=== PATIENT | male | born 1970 | race Caucasian/White ===

== ENCOUNTER 2016-12-27 09:24 | Inpatient (IN) | payer OTHER ==
[~2016-12-27] VITALS: Ht 177.8 cm; Wt 128.9 kg
[~2016-12-27 09:24] MED LIST: ALPR0.254 PO; AMLO5TAB2 PO; ASPI-9 PO; CITA10TA7 PO; LISI1TAB6 PO; METO-272 PO; PANT40TA3 PO
--- OUTSIDE RECORDS SUMMARY | 2016-12-27 09:41 | XMS REPORT | Continuity of Care Document ---
Author Author [facility] Organization [facility] Address Unknown Phone Unavailable Allergies Active Description Code Type Severity Reaction Onset Reported/Identified Relationship to Patient Clinical Status Yes No Known Drug Allergies [id number] Drug Allergy Unknown N/ A 07/23/2014 Medications Problems Date Dx Coded Attending Type Code Diagnosis Diagnosed By 07/23/2014 ADIEL ROSS, SANTOS [place] 780.97 07/23/2014 ADIEL ROSS, SANTOS [place] 785.1 04/13/2015 LAZARO DO ELROY [place] Ot 726.2 04/13/2015 LAZARO DO ELROY F Ot V57.1 05/30/2015 LAZARO DO ELROY [place] Ot 726.2 SHOULDER REGION DIS NEC 05/30/2015 LAZARO , ELROY F Ot V57.1 PHYSICAL THERAPY NEC 06/17/2015 TYE KHAN CRAFT WORKER Ot V57.1 06/17/2015 TYE KHAN CRAFT WORKER Ot V58.78 07/12/2015 TYE KHAN CRAFT WORKER Ot V57.1 PHYSICAL THERAPY NEC 07/12/2015 TYE KHAN CRAFT WORKER Ot V58.78 AFTERCARE POST SURGERY MUSCULOSKELETAL S 10/13/2015 IRENE DO, RODRIGUE Ot E66.9 10/13/2015 IRENE DO, RODRIGUE Ot E78.5 10/13/2015 IRENE DO, RODRIGUE Ot I10 10/13/2015 IRENE DO, RODRIGUE Ot I20.9 10/13/2015 IRENE DO, RODRIGUE Ot K21.9 10/13/2015 IRENE DO, RODRIGUE Ot R73.9 10/13/2015 IRENE DO, RODRIGUE Ot Z68.39 10/13/2015 IRENE DO, RODRIGUE Ot E66.9 OBESITY, UNSPECIFIED 10/13/2015 IRENE DO, RODRIGUE Ot E78.5 HYPERLIPIDEMIA, UNSPECIFIED 10/13/2015 IRENE DO, RODRIGUE Ot I10 ESSENTIAL (PRIMARY) HYPERTENSION 10/13/2015 IRENE DO, RODRIGUE Ot I20.9 ANGINA PECTORIS, UNSPECIFIED 10/13/2015 IRENE DO, RODRIGUE Ot K21.9 GASTRO-ESOPHAGEAL REFLUX DISEASE WITHOUT 10/13/2015 IRENE DO, RODRIGUE Ot R73.9 HYPERGLYCEMIA, UNSPECIFIED 10/13/2015 IRENE DO, RODRIGUE Ot Z68.39 BODY MASS INDEX (BMI) 39.0-39.9, ADULT 10/13/2015 IRENE DO, RODRIGUE Ot E66.9 10/13/2015 IRENE DO, RODRIGUE Ot E78.5 10/13/2015 IRENE DO, RODRIGUE Ot I10 10/13/2015 IRENE DO, RODRIGUE Ot I20.9 10/13/2015 IRENE DO, RODRIGUE Ot K21.9 10/13/2015 IRENE DO, RODRIGUE Ot R73.9 10/13/2015 IRENE DO, RODRIGUE Ot Z68.39 Procedures Results Encounters ACCT No. Visit Date/Time Discharge Status Pt. Type Provider Facility Loc./Unit Complaint [id number] 10/11/2015 10:28:00 2014 10:00:00 DIS Inpatient TETO MEANS RODRIGUE [facility] ICU [id number] 07/12/2015 13:30:00 2014 16:47:00 DIS Outpatient TYE KHAN APRN [facility] REHAB [id number] 04/20/2015 14:48:00 2014 11:27:00 DIS Outpatient ELROY WILLIS DO [facility] REHAB [id number] 07/23/2014 04:48:00 2013 06:52:00 DIS Emergency ADIEL ROSS, SANTOS [facility] ER
[2016-12-27] MEDS ORDERED: CATHETER FLUSH 10 ML SYR IV PRN (09:45)
[2016-12-27] MEDS ORDERED: NS 100 ML (IVPB) BAG IV ONE (09:45)
[2016-12-27] MEDS ORDERED: IOHEXOL 350 MG/ML 150 ML (OMNIPAQUE 350) VIAL IV ONE (09:45)
--- NOTE | 2016-12-27 10:04 | History & Physical-Hospitalist ---
HPI History of Present Illness: HPI/Chief Complaint CC: Severe cough and wheezing failed outpatient therapy HPI: This is a 46-year-old white male clinic patient of mine for the past several years with a past medical history of hypertension and hyperglycemia with hyperlipidemia that presents to the hospital as a direct admission due to failure on Levaquin, oral steroids, and Advair for upper respiratory illness walking pneumonia empirically treated by me at my clinic on Saturday. He reports that the cough started 1 week prior fever accompanying the cough with productive cough of phlegm and overall declined source I'm on Saturday found to have wheezing and shortness of breath so I placed him on antibiotics of Levaquin and steroid taper along with Advair and close follow-up. He called the office today and felt worse so I directly admitted him found to have lactic acid of 2.1 elevation cities placed on empiric triple antibiotic IV antibiotics and steroids. Source: patient Date Seen 12/27/16 Attending Physician Hillary Wilson DO PCP Hillary Wilson DO Referring Physician Date of Admission Dec 27, 2016 at 09:36 Home Medications & Allergies Home Medications Reviewed patient Home Medication Reconciliation Form Allergies Coded Allergies: No Known Drug Allergies (Unverified , 07/23/14) Past Wockdud-Jhamps-Jlgqkc Hx Patient Social History Marrital Status: Employed/Student: employed Smoking Status: Never a Smoker Immunizations Up To Date Tetanus Booster (TDap): Unknown Surgeries HX Surgeries: Yes (MAY 2015 L SHOULDER SURG, R KNEE SURG 1992) Surgeries: Orthopedic Respiratory Hx Respiratory Disorders: No Cardiovascular Hx Cardiovascular Disorders: Yes Cardiac Disorders: High Cholesterol, Hypertension Neurological Hx Neurological Disorders: No Reproductive System Hx Reproductive Disorders: No Genitourinary Hx Genitourinary Disorders: No (KIDNEY STONE WHEN 19 YEARS OLD) Gastrointestinal Hx Gastrointestinal Disorders: No (OCCASIONALLY GETS HEARTBURN) Musculoskeletal Hx Musculoskeletal Disorders: No (HAD ARTHRITIS TO L SHOULDER) Musculoskeletal Disorders: Arthritis Endocrine Hx Endocrine Disorders: Yes Endocrine Disorders: Diabetes, Non-Insulin dep HEENT HX ENT Disorders: No Cancer Hx Cancer: No Psychosocial Hx Psychiatric Problems: No Integumentary HX Skin/Integumentary Disorder: No Blood Transfusions Hx Blood Disorders: No Family Medical History Significant Family History: No Pertinent Family Hx Family Hx: CABG 19 FATHER Cardiovascular disease 19 FATHER Diabetes mellitus GRANDMOTHER GRANDFATHER Hypertension 19 FATHER Review of Systems Constitutional: see HPI dizziness fever malaise weakness EENTM: no symptoms reported Respiratory: cough short of breath wheezing Cardiovascular: no symptoms reported Gastrointestinal: no symptoms reported Genitourinary: no symptoms reported Musculoskeletal: no symptoms reported Skin: no symptoms reported Psychiatric/Neurological: No Symptoms Reported Physical Exam Physical Exam Vital Signs Vital Sign - Last 12Hours 12/27/16 10:30 Pulse Ox 96 Capillary Refill : General Appearance: No Apparent Distress WD/WN Obese Other (acutely ill and constantly coughing and wheezing) Eyes: Bilateral Eye Normal Inspection, Bilateral Eye PERRL HEENT: PERRL/EOMI Normal ENT Inspection Pharynx Normal Neck: Full Range of Motion Normal Inspection Non Tender Supple Carotid Bruit Respiratory: Chest Non Tender No Accessory Muscle Use No Respiratory Distress Crackles Decreased Breath Sounds Wheezing Cardiovascular: Regular Rate, Rhythm No Edema No Gallop No JVD No Murmur Normal Peripheral Pulses Gastrointestinal: Normal Bowel Sounds No Organomegaly No Pulsatile Mass Non Tender Soft Back: Normal Inspection No CVA Tenderness No Vertebral Tenderness Extremity: Normal Capillary Refill Normal Inspection Normal Range of Motion Non Tender No Calf Tenderness No Pedal Edema Neurologic/Psychiatric: Alert Oriented x3 No Motor/Sensory Deficits Normal Mood/Affect Skin: Normal Color Warm/Dry Lymphatic: No Adenopathy Results Results/Procedures Lab Laboratory Tests 12/27/16 09:37 12/27/16 09:52 Assessment/Plan Admission Diagnosis Assessment: Pneumonia failed Levaquin and steroids and Advair New onset wheezing without history of lung disease and a nonsmoker lifetime Hypertension Hyperlipidemia Obesity Elevated lactic acid placed on IV fluids Hypoxia Assessment and Plan Plan: Check chest x-ray IV fluids Empiric antibiotics IV steroids Pulmicort DuoNeb Check ABG Supportive care Accu-Cheks with sliding scale due to hyperglycemia in addition to steroids HILLARY WILSON DO Dec 27, 2016 10:04
[2016-12-27 10:08] LABS: BASOPHILS % (AUTO) 1 % (0-10); EOSINOPHILS % (AUTO) 1 % (0-10); LYMPHOCYTES # (AUTO) 1.7 X 10^3 (1.0-4.0); LYMPHOCYTES % (AUTO) 20 % (12-44); MEAN CORPUSCULAR HEMOGLOBIN 30 PG (25-34); MEAN CORPUSCULAR HGB CONC 35 G/DL (32-36); MEAN CORPUSCULAR VOLUME 87 FL (80-99); MEAN PLATELET VOLUME 10.1 FL (7.4-10.4); MONOCYTES # (AUTO) 0.7 X 10^3 (0.0-1.0); MONOCYTES % (AUTO) 8 % (0-12); NEUTROPHILS # (AUTO) 6.1 X 10^3 (1.8-7.8); NEUTROPHILS % (AUTO) 71 % (42-75); PLATELET COUNT 230 10^3/uL (130-400); RED BLOOD COUNT 4.75 10^6/uL (4.35-5.85); RED CELL DISTRIBUTION WIDTH 13.9 % (10.0-14.5); WHITE BLOOD COUNT 8.6 10^3/uL (4.3-11.0)
[2016-12-27] MEDS ORDERED: ALPR0.25 PO (10:16)
[2016-12-27] MEDS ORDERED: PANT40TA2 PO (10:16)
[2016-12-27] MEDS ORDERED: TRIA1CAP4 PO (10:16)
[2016-12-27] MEDS ORDERED: LEVO750T9 PO (10:16)
[2016-12-27] MEDS ORDERED: CITA10TA7 PO (10:16)
[2016-12-27] MEDS ORDERED: AMLO10TA2 PO (10:16)
[2016-12-27] MEDS ORDERED: FLUT1DIS28 IH (10:16)
[2016-12-27] MEDS ORDERED: PRD10T PO (10:16)
[2016-12-27] MEDS ORDERED: METO-272 PO (10:16)
[2016-12-27] MEDS ORDERED: ALBU90AE IH (10:16)
--- NOTE | 2016-12-27 10:19 | Diagnostic Imaging Report ---
EXAMINATION: PA and lateral views of the chest. COMPARISON: 10/12/15. INDICATION: Shortness of breath and cough. FINDINGS: There is elevation of the right hemidiaphragm similar to 10/12/2015 exam with minimal atelectasis in the right lung base. No significant consolidation. The heart size is normal. No effusion or pneumothorax. The mediastinum and triston appear unremarkable. IMPRESSION: Elevated right hemidiaphragm with minimal right basilar atelectasis. Dictated by: Dictated on workstation # [id number]
[2016-12-27 10:26] LABS: ALANINE AMINOTRANSFERASE 50 U/L (0-55); ALBUMIN 3.9 G/DL (3.2-4.5); ANION GAP 13 MMOL/L (5-14); ASPARTATE AMINO TRANSFERASE 24 U/L (5-34); BILIRUBIN,TOTAL 0.3 MG/DL (0.1-1.0); BLOOD UREA NITROGEN 13 MG/DL (7-18); BUN/CREATININE RATIO 15; CALCIUM 8.6 MG/DL (8.5-10.1); CARBON DIOXIDE 21 MMOL/L (21-32); CHLORIDE 105 MMOL/L (98-107); CREATININE SERUM 0.87 MG/DL (0.60-1.30); GFR ESTIMATED > 60; GLUCOSE 255 MG/DL (70-105); POTASSIUM 3.8 MMOL/L (3.6-5.0); SODIUM 139 MMOL/L (135-145); TOTAL PROTEIN 6.3 G/DL (6.4-8.2)
[2016-12-27] MEDS: RT-BUDESONIDE NEBS 0.5 MG/2ML (PULMICORT) AMP INH SCH ×2 (10:29→19:15)
[2016-12-27] MEDS: RT-ALBUTEROL/IPRATROPIUM 3 ML (DUONEB) VIAL INH SCH ×4 (10:29→19:15)
[2016-12-27 10:30] VITALS: BP 146/87
[2016-12-27 10:32] LABS: ABG BASE EXCESS 2.3 MMOL/L (-2.5-2.5); ABG HCO3 28 MMOL/L (23-27); ABG OXYGEN SATURATION 68 % (94-100); ABG PCO2 45 MMHG (35-45); ABG PH 7.41 (7.37-7.43); ABG TCO2 28.9 MMOL/L (21.0-31.0)
[2016-12-27 10:32] LABS: TROPONIN I < 0.30 NG/ML (<0.30)
[2016-12-27 10:36] LABS: ABG PO2 35 MMHG (79-93); PATIENT TEMP 98.2
[2016-12-27] MEDS: NS IV 1000 ML 1,000 ML IV SCH ×2 (11:21→23:15)
[2016-12-27] MEDS: guaiFENesin/CODEINE (ROBITUSSIN AC) 10ML UDC PO PRN ×2 (11:36→23:13)
[2016-12-27] MEDS: CEFEPIME INJECTION 2,000 MG in NS (IVPB) 50 ML IV SCH ×2 (11:38→23:14)
[2016-12-27 12:00] VITALS: BP 132/83
[2016-12-27] MEDS: methylPREDNISolone 40 MG/ML (Solu-MEDROL) VIAL IV SCH ×3 (12:18→23:13)
[2016-12-27] MEDS: LEVOFLOXACIN 750 MG/150 ML IV 150 ML IV SCH (12:20)
[2016-12-27] MEDS: inSUlin ASPART (NovoLOG) 1 UNIT/0.01 ML (CHARGE PER UNIT) SC SCH ×3 (12:32→23:13)
[2016-12-27] MEDS ORDERED: FLU TRIvalent (5 YOA+) 2016-17 (AFLURIA) 0.5 ML IM ONE (15:30)
--- NOTE | 2016-12-27 15:31 | Diagnostic Imaging Report ---
PROCEDURE: CT angiography of the chest with contrast. TECHNIQUE: Multiple contiguous axial images were obtained through the chest after uneventful bolus administration of intravenous contrast. Reconstructed CTA MIP acquisitions were also performed. INDICATION: Cough and congestion. Febrile. FINDINGS: There is moderate opacification of the aorta and pulmonary arteries following IV contrast injection. No evidence of aortic aneurysm or dissection. Pulmonary arteries show no filling defect to suggest pulmonary emboli. The lungs are well aerated and clear. No mediastinal or hilar adenopathy of pathologic size. No bony abnormality. There is noted hepatomegaly with diffuse fatty infiltration of the liver. IMPRESSION: 1. Normal CT angiography of the chest. 2. Hepatic steatosis with hepatomegaly. Dictated by: Dictated on workstation # [id number]
[2016-12-27 15:45] VITALS: BP 136/78
[2016-12-27] MEDS ORDERED: inSUlin ASPART (NovoLOG) 1 UNIT/0.01 ML (CHARGE PER UNIT) SC SCH (16:00)
[2016-12-27] MEDS ORDERED: ALPRAZolam 0.25 MG (XANAX) TAB PO PRN (17:45)
[2016-12-27 20:00] VITALS: BP 131/72
[2016-12-28] VITALS: BP 122/72
[2016-12-28 04:00] VITALS: BP 138/81
[2016-12-28 05:14] LABS: BASOPHILS % (AUTO) 0 % (0-10); EOSINOPHILS % (AUTO) 0 % (0-10); LYMPHOCYTES # (AUTO) 1.3 X 10^3 (1.0-4.0); LYMPHOCYTES % (AUTO) 10 % (12-44); MEAN CORPUSCULAR HEMOGLOBIN 30 PG (25-34); MEAN CORPUSCULAR HGB CONC 34 G/DL (32-36); MEAN CORPUSCULAR VOLUME 86 FL (80-99); MEAN PLATELET VOLUME 10.3 FL (7.4-10.4); MONOCYTES # (AUTO) 0.3 X 10^3 (0.0-1.0); MONOCYTES % (AUTO) 3 % (0-12); NEUTROPHILS # (AUTO) 11.7 X 10^3 (1.8-7.8); NEUTROPHILS % (AUTO) 88 % (42-75); PLATELET COUNT 276 10^3/uL (130-400); RED BLOOD COUNT 4.89 10^6/uL (4.35-5.85); RED CELL DISTRIBUTION WIDTH 13.8 % (10.0-14.5); WHITE BLOOD COUNT 13.3 10^3/uL (4.3-11.0)
[2016-12-28 05:19] LABS: ALANINE AMINOTRANSFERASE 45 U/L (0-55); ALBUMIN 3.9 G/DL (3.2-4.5); ANION GAP 12 MMOL/L (5-14); ASPARTATE AMINO TRANSFERASE 18 U/L (5-34); BILIRUBIN,TOTAL 0.4 MG/DL (0.1-1.0); BLOOD UREA NITROGEN 16 MG/DL (7-18); BUN/CREATININE RATIO 16; CALCIUM 8.4 MG/DL (8.5-10.1); CARBON DIOXIDE 21 MMOL/L (21-32); CHLORIDE 102 MMOL/L (98-107); CREATININE SERUM 0.99 MG/DL (0.60-1.30); GFR ESTIMATED > 60; GLUCOSE 254 MG/DL (70-105); POTASSIUM 4.2 MMOL/L (3.6-5.0); SODIUM 135 MMOL/L (135-145); TOTAL PROTEIN 6.4 G/DL (6.4-8.2)
[2016-12-28] MEDS: methylPREDNISolone 40 MG/ML (Solu-MEDROL) VIAL IV SCH ×4 (06:37→23:58)
[2016-12-28] MEDS: inSUlin ASPART (NovoLOG) 1 UNIT/0.01 ML (CHARGE PER UNIT) SC SCH ×4 (06:38→21:33)
[2016-12-28] MEDS: PANTOPRAZOLE 40 MG (PROTONIX) TAB PO SCH (06:38)
[2016-12-28] MEDS: RT-ALBUTEROL/IPRATROPIUM 3 ML (DUONEB) VIAL INH SCH ×4 (07:25→20:00)
[2016-12-28] MEDS: RT-BUDESONIDE NEBS 0.5 MG/2ML (PULMICORT) AMP INH SCH ×2 (07:25→20:05)
[2016-12-28 07:54] VITALS: BP 122/70
[2016-12-28] MEDS: TRIAMTERENE/HCTZ 75-50 (MAXZIDE,DYAZIDE) TABLET PO SCH (08:52)
[2016-12-28] MEDS: meTOproloL SUCCINATE 50 MG (TOPROL XL) TAB PO SCH (08:53)
[2016-12-28] MEDS: amLODIPine 10 MG (NORVASC) TAB PO SCH (08:53)
[2016-12-28] MEDS: CEFEPIME INJECTION 2,000 MG in NS (IVPB) 50 ML IV SCH ×2 (08:54→21:36)
[2016-12-28] MEDS ORDERED: NON-FORMULARY MEDICATION 1 EA EA (Triamterene/Hydrochlorothiazid (Triamterene-Hctz 37.5-25 PO SCH (09:00)
[2016-12-28] MEDS ORDERED: GFCD10B PO (09:50)
[2016-12-28] MEDS ORDERED: IPRA3AMP INH (09:50)
[2016-12-28] MEDS ORDERED: PRED10TA22 PO (09:50)
[2016-12-28] MEDS ORDERED: CEFD300C3 PO (09:50)
[2016-12-28] MEDS: LEVOFLOXACIN 750 MG/150 ML IV 150 ML IV SCH (10:02)
--- NOTE | 2016-12-28 10:21 | Diagnostic Imaging Report ---
INDICATION: Pneumonia COMPARISON: 12/27/2016 FINDINGS: Frontal and lateral views of the chest demonstrate normal heart size and pulmonary vascularity. The lungs are clear. There are no signs of infiltrate, pleural effusions or pneumothoraces. The visualized osseous structures show no acute abnormalities. IMPRESSION: 1. No acute process. No signs of infiltrates, effusions or pneumothoraces. Dictated by: Dictated on workstation # [id number]
--- NOTE | 2016-12-28 11:04 | Progress Note-Hospitalist ---
Progress Note HPI/CC on Admission CC: Severe cough and wheezing failed outpatient therapy HPI: This is a 46-year-old white male clinic patient of mine for the past several years with a past medical history of hypertension and hyperglycemia with hyperlipidemia that presents to the hospital as a direct admission due to failure on Levaquin, oral steroids, and Advair for upper respiratory illness walking pneumonia empirically treated by me at my clinic on Saturday. He reports that the cough started 1 week prior fever accompanying the cough with productive cough of phlegm and overall declined source I'm on Saturday found to have wheezing and shortness of breath so I placed him on antibiotics of Levaquin and steroid taper along with Advair and close follow-up. He called the office today and felt worse so I directly admitted him found to have lactic acid of 2.1 elevation cities placed on empiric triple antibiotic IV antibiotics and steroids. Progress Notes/Assess & Plan Date Seen 12/28/16 Admission Dx/Process Assessment: Pneumonia failed Levaquin and steroids and Advair New onset wheezing without history of lung disease and a nonsmoker lifetime Hypertension Hyperlipidemia Obesity Elevated lactic acid placed on IV fluids Hypoxia Diagonsis/Assessment & Plan Patient doing well but he just doesn't feel right CT angiogram showed no evidence of PE and d-dimer was negative Chest x-ray showed slight residual from likely pneumonia that was diagnosed on Saturday placed on Levaquin and likely partially resolved White count is up from the steroids Patient is flushing likely due to steroids Echocardiogram and workup for chest pain was done fairly recently so I don't feel like we need to repeat that Needs sleep study and although we discussed multiple times he had not had that done yet so I did speak with Dr. Cruz who will see him in consultation and review the case assure that nothing has been overlooked to help this patient recover and will arrange for a sleep study. Discharge plan for tomorrow and close follow-up with me on Saturday [facility] along with nebulizer machine with meds all sent in to [facility] already No fever, vital signs stable, pleasant, much improved to this examiner Regular rate and rhythm, clear to auscultation bilaterally and no wheezing or rales are noted much improved from yesterday No edema Laboratory Tests 12/28/16 03:40 Assessment: Pneumonia failed Levaquin and steroids and Advair Saturday before admit New onset wheezing without history of lung disease and a nonsmoker lifetime negative CT chest for PE and nl d-dimer consulting Dr Cruz to evaluate the case since he does not "feel right" today Hypertension Hyperlipidemia Obesity Elevated lactic acid placed on IV fluids now DC Hypoxia Hyperglycemia with borderline DM in clinic labs Plan: Continue antibiotics IV steroids Pulmicort DuoNeb Supportive care Accu-Cheks with sliding scale due to hyperglycemia in addition to steroids Dr Cruz consultation and needs sleep study since I suspect TICO severe Appt with me after DC Saturday [place] [facility] 01/01/17 at 1:45pm RODRIGUE IRENE DO Dec 28, 2016 11:04
[2016-12-28 12:00] VITALS: BP 138/69
[2016-12-28] MEDS ORDERED: NS IV 1000 ML 1,000 ML IV ONE (14:00)
--- NOTE | 2016-12-28 14:19 | Pulmonary Consultation ---
History of Present Illness History of Present Illness Date of Consultation 12/28/16 14:18 Date of Admission History of Present Illness 46yo presented after failing out patient treatment presents to the hospital as a direct admission due to failure on Levaquin, oral steroids, and Advair for upper respiratory illness walking pneumonia empirically treated by me at my clinic on Saturday. He reports that the cough started 1 week prior fever accompanying the cough with productive cough of phlegm and overall declined source. I am consulted for pulmonary management. Allergies and Home Medications Allergies Coded Allergies: No Known Drug Allergies (Unverified , 07/23/14) Home Medications Albuterol Sulfate 90 Mcg Aer.pow.ba 1-2 PUFF IH Q4H PRN PRN SHORTNESS OF BREATH (Reported) Alprazolam 0.25 Mg Tablet 0.25 MG PO Q8H PRN PRN ANXIETY (Reported) Amlodipine Besylate 10 Mg Tablet 10 MG PO DAILY (Reported) LAST FILLED #30 11-08-16 Aspirin/Calcium Carbonate/Mag 325 Mg Tablet 650 MG PO DAILY PRN PRN PAIN ( Reported) Cefdinir 300 Mg Capsule #10 300 MG PO BID Prescribed by: RODRIGUE IRENE on 12/28/16 0950 Citalopram Hydrobromide 10 Mg Tablet 10 MG PO DAILY (Reported) LAST FILLED #30 11-08-16 Fluticasone/Salmeterol 1 Each Blst.w.dev 1 PUFF IH BID (Reported) Guaifenesin/Codeine 10 Ml Syrp #4 10 ML PO Q4H PRN PRN COUGH Prescribed by: RODRIGUE IRENE on 12/28/16 0950 Ipratropium/Albuterol Sulfate 3 Ml Ampul.neb #10 3 ML INH RTQID Prescribed by: RODRIGUE IRENE on 12/28/16 0950 Metoprolol Succinate 50 Mg Tab.er.24h 50 MG PO DAILY (Reported) LAST FILLED #30 11-08-16 Pantoprazole Sodium 40 Mg Tablet.dr 40 MG PO DAILY (Reported) LAST FILLED #30 11-08-16 Prednisone 10 Mg Tab.ds.pk #21 10 MG PO DAILY Take 6 tabs(60mg)daily,decrease by 1 tab(10MG)daily. Prescribed by: RODRIGUE IRENE on 12/28/16 0950 Triamterene/Hydrochlorothiazid 1 Each Capsule 1 CAP PO DAILY (Reported) Past Oiqaact-Ukncrd-Twjbkj Hx Patient Social History Alcohol Use: Denies Use Recreational Drug Use: No Smoking Status: Never a Smoker Recent Foreign Travel: No Contact w/Someone Who Travel: No Recent Infectious Disease Expo: No Recent Hopitalizations: No Physical Abuse Screen: No Sexual Abuse: No Immunizations Up To Date Tetanus Booster (TDap): Unknown PED Vaccines UTD: No Seasonal Allergies Seasonal Allergies: No Surgeries HX Surgeries: Yes (MAY 2015 L SHOULDER SURG, R KNEE SURG 1992) Surgeries: Orthopedic Respiratory Hx Respiratory Disorders: No Cardiovascular Hx Cardiac Disorders: Yes Cardiac Disorders: High Cholesterol, Hypertension Neurological Hx Neurological Disorders: No Reproductive System Hx Reproductive Disorders: No Genitourinary Hx Genitourinary Disorders: No (KIDNEY STONE WHEN 19 YEARS OLD) Gastrointestinal Hx Gastrointestinal Disorders: No (OCCASIONALLY GETS HEARTBURN) Musculoskeletal Hx Musculoskeletal Disorders: No (HAD ARTHRITIS TO L SHOULDER) Musculoskeletal Disorders: Arthritis Endocrine Hx Endocrine Disorders: Yes Endocrine Disorders: Diabetes, Non-Insulin dep HEENT HX ENT Disorders: No Cancer Hx Cancer: No Psychosocial Hx Psychiatric Problems: No Integumentary HX Skin/Integumentary Disorder: No Blood Transfusions Hx Blood Disorders: No Family Medical History Significant Family History: No Pertinent Family Hx Family Medial History: CABG 19 FATHER Cardiovascular disease 19 FATHER Diabetes mellitus GRANDMOTHER GRANDFATHER Hypertension 19 FATHER Review of Systems Constitutional: : Fever: Malaise: Weakness Respiratory: : Cough: Dry: SOB with excertion: Shortness of breath Gastrointestinal: : Nausea Exam Exam Vital Signs Date Time Temp Pulse Resp B/P Pulse Ox O2 Delivery O2 Flow Rate FiO2 12/28/16 12:00 98.6 103 16 138/69 95 Room Air 12/28/16 09:00 Room Air 12/28/16 07:54 96.9 101 16 122/70 93 Room Air 12/28/16 07:27 92 12/28/16 07:00 78 12/28/16 04:00 97.6 76 18 138/81 94 Room Air 12/28/16 01:19 70 12/28/16 00:00 98.7 83 18 122/72 95 Room Air 12/27/16 20:00 97.1 69 18 131/72 95 Room Air 12/27/16 19:22 98 12/27/16 19:18 94 12/27/16 19:00 89 12/27/16 18:24 Room Air 12/27/16 15:45 98.3 74 18 136/78 93 Room Air I & O 12/28/16 07:00 Intake Total 1300 ml Output Total 1050 ml Balance 250 ml General Appearance: No Apparent Distress WD/WN Obese Other (acutely ill and constantly coughing and wheezing) HEENT: PERRL/EOMI Normal ENT Inspection Pharynx Normal Neck: Full Range of Motion Normal Inspection Non Tender Supple Carotid Bruit Respiratory: Chest Non Tender No Accessory Muscle Use No Respiratory Distress Crackles Decreased Breath Sounds Wheezing Cardiovascular: Regular Rate, Rhythm No Edema No Gallop No JVD No Murmur Normal Peripheral Pulses Extremity: Normal Capillary Refill Normal Inspection Normal Range of Motion Non Tender No Calf Tenderness No Pedal Edema Neurologic/Psychiatric: Alert Oriented x3 No Motor/Sensory Deficits Normal Mood/Affect Skin: Normal Color Warm/Dry Lymphatic: No Adenopathy Results Lab Laboratory Tests 12/27/16 09:37 12/27/16 09:52 12/28/16 03:40 Assessment/Plan Assessment/Plan Pneumonia With Acute bronchitis --- resolving -Cefepime, Levaquin -Continue solumedrol Obesity Elevated lactic acid -IV fluids TICO -Pt needs out pt PSG Clinical Quality Measures DVT/VTE Risk/Contraindication: Risk Factor Score Per Nursin RFS Level Per Nursing on Admit: 2=Moderate JUVENCIO GUZMAN DO Dec 28, 2016 14:19
[2016-12-28 16:00] VITALS: BP 136/75
[2016-12-28 20:00] VITALS: BP 129/63
[2016-12-28] MEDS: guaiFENesin/CODEINE (ROBITUSSIN AC) 10ML UDC PO PRN (21:32)
[2016-12-29] VITALS: BP 125/69
[2016-12-29 03:55] LABS: BASOPHILS % (AUTO) 0 % (0-10); EOSINOPHILS % (AUTO) 0 % (0-10); LYMPHOCYTES # (AUTO) 1.4 X 10^3 (1.0-4.0); LYMPHOCYTES % (AUTO) 9 % (12-44); MEAN CORPUSCULAR HEMOGLOBIN 30 PG (25-34); MEAN CORPUSCULAR HGB CONC 35 G/DL (32-36); MEAN CORPUSCULAR VOLUME 86 FL (80-99); MEAN PLATELET VOLUME 10.5 FL (7.4-10.4); MONOCYTES % (AUTO) 6 % (0-12); NEUTROPHILS # (AUTO) 13.9 X 10^3 (1.8-7.8); NEUTROPHILS % (AUTO) 85 % (42-75); PLATELET COUNT 281 10^3/uL (130-400); RED BLOOD COUNT 4.87 10^6/uL (4.35-5.85); RED CELL DISTRIBUTION WIDTH 13.9 % (10.0-14.5); WHITE BLOOD COUNT 16.2 10^3/uL (4.3-11.0)
[2016-12-29 04:00] VITALS: BP 125/85
[2016-12-29 04:27] LABS: ALANINE AMINOTRANSFERASE 35 U/L (0-55); ALBUMIN 3.8 G/DL (3.2-4.5); ANION GAP 12 MMOL/L (5-14); ASPARTATE AMINO TRANSFERASE 12 U/L (5-34); BILIRUBIN,TOTAL 0.4 MG/DL (0.1-1.0); BLOOD UREA NITROGEN 22 MG/DL (7-18); BUN/CREATININE RATIO 23; CALCIUM 8.6 MG/DL (8.5-10.1); CARBON DIOXIDE 19 MMOL/L (21-32); CHLORIDE 105 MMOL/L (98-107); CREATININE SERUM 0.97 MG/DL (0.60-1.30); GFR ESTIMATED > 60; GLUCOSE 279 MG/DL (70-105); POTASSIUM 4.5 MMOL/L (3.6-5.0); SODIUM 136 MMOL/L (135-145); TOTAL PROTEIN 5.8 G/DL (6.4-8.2)
[2016-12-29 04:38] LABS: BAND NEUTROPHILS 3 %; BASOPHILS % (MANUAL) 0 %; EOSINOPHILS % (MANUAL) 0 %; LYMPHOCYTES % (MANUAL) 10 %; NEUTROPHILS % (MANUAL) 79 %; REACTIVE LYMPHOCYTES 6 %
[2016-12-29] MEDS: methylPREDNISolone 40 MG/ML (Solu-MEDROL) VIAL IV SCH (05:09)
[2016-12-29] MEDS: inSUlin ASPART (NovoLOG) 1 UNIT/0.01 ML (CHARGE PER UNIT) SC SCH (05:09)
[2016-12-29] MEDS: guaiFENesin/CODEINE (ROBITUSSIN AC) 10ML UDC PO PRN (05:09)
[2016-12-29] MEDS: PANTOPRAZOLE 40 MG (PROTONIX) TAB PO SCH (05:09)
[2016-12-29] MEDS: RT-ALBUTEROL/IPRATROPIUM 3 ML (DUONEB) VIAL INH SCH (07:28)
[2016-12-29] MEDS: RT-BUDESONIDE NEBS 0.5 MG/2ML (PULMICORT) AMP INH SCH (07:28)
[2016-12-29 07:59] VITALS: BP 120/78
[2016-12-29] MEDS: CEFEPIME INJECTION 2,000 MG in NS (IVPB) 50 ML IV SCH (08:00)
[2016-12-29] MEDS: TRIAMTERENE/HCTZ 75-50 (MAXZIDE,DYAZIDE) TABLET PO SCH (08:01)
[2016-12-29] MEDS: amLODIPine 10 MG (NORVASC) TAB PO SCH (08:01)
[2016-12-29] MEDS: meTOproloL SUCCINATE 50 MG (TOPROL XL) TAB PO SCH (08:01)
[2016-12-29] MEDS: LEVOFLOXACIN 750 MG/150 ML IV 150 ML IV SCH (08:30)
--- NOTE | 2016-12-29 09:52 | Discharge Summary-Hospitalist ---
Diagnosis/Chief Complaint Date of Admission Dec 27, 2016 at 09:36 Date of Discharge December 29, 2016 Discharge Date: Dec 29, 2016 Discharge Time: 11:00 Admission Diagnosis Assessment: Pneumonia failed Levaquin and steroids and Advair New onset wheezing without history of lung disease and a nonsmoker lifetime Hypertension Hyperlipidemia Obesity Elevated lactic acid placed on IV fluids Hypoxia Discharge Diagnosis Pneumonia-clinical diagnosis postinfectious reactive airway disease Hypertension Hyperlipidemia Obesity Elevated lactic acid Hypoxia Hyperglycemia with borderline DM in clinic labs hepatic steatosis possible obstructive sleep apnea Reason Hospital Visit/Course CC: Severe cough and wheezing failed outpatient therapy HPI: This is a 46-year-old white male clinic patient of [employer] for the past several years with a past medical history of hypertension and hyperglycemia with hyperlipidemia that presents to the hospital as a direct admission due to failure on Levaquin, oral steroids, and Advair for upper respiratory illness walking pneumonia empirically treated by me at my clinic on Saturday. He reports that the cough started 1 week prior fever accompanying the cough with productive cough of phlegm and overall declined source I'm on Saturday found to have wheezing and shortness of breath so I placed him on antibiotics of Levaquin and steroid taper along with Advair and close follow-up. He called the office today and felt worse so I directly admitted him found to have lactic acid of 2.1 elevation cities placed on empiric triple antibiotic IV antibiotics and steroids. Discharge Summary Procedures CT chest Consultations Dr. Cruz Discharge Physical Examination Allergies: Coded Allergies: No Known Drug Allergies (Unverified , 07/23/14) Vitals & I&Os Vital Signs Date Time Temp Pulse Resp B/P Pulse Ox O2 Delivery O2 Flow Rate FiO2 12/29/16 07:59 97.5 103 20 120/78 99 Room Air General Appearance: Alert, Oriented X3 Respiratory: Clear to Auscultation Cardiovascular: Regular Rate, Normal S1, Normal S2 Abdominal: Normal Bowel Sounds, Soft Extremities: No Clubbing, No Edema Skin: No Rashes Neuro: Normal Gait, Normal Speech, Strength at 5/5 X4 Ext Psych/Mental Status: Mental Status NL Hospital Course patient was admitted having failed outpatient treatment for presumed pneumonia. patient was hypoxic with audible wheezing. CT chest showed no evidence of an infiltrate but did show hepatic steatosis. Patient was placed on aggressive IV antibiotics with cefepime and Levaquin. IV steroids were also added. The patient improved within 48 hours and didn't feel quite well enough to go home the day before discharge. As such Dr. Cruz was consulted to see the patient. he agreed with current treatment plan. At the time of discharge the patient is greatly improved. White count has increased as would be expected with the IV steroids. His blood sugars have been in the 200s also which would've been expected with the IV steroids in the history of hyperglycemia. Patient is aware of this and is instructed on diet changes. He'll be discharged on by mouth prednisone low-dose. Will have close follow-up with Dr. Wilson and with Dr. Cruz. blood cultures and sputum cultures were negative. Labs (last 24 hrs) Laboratory Tests 12/28/16 11:12: Glucometer 249H 12/28/16 16:33: Glucometer 271H 12/28/16 20:50: Glucometer 290H 12/29/16 03:06: Alanine Aminotransferase (ALT/SGPT) 35, Albumin 3.8, Alkaline Phosphatase 47, Anion Gap 12, Aspartate Amino Transf (AST/SGOT) 12, BUN/Creatinine Ratio 23, Band Neutrophils 3, Basophils # (Auto) 0.0, Basophils % (Manual) 0, Basophils (% ) (Auto) 0, Blood Morphology Comment NORMAL, Blood Urea Nitrogen 22H, Calcium Level 8.6, Carbon Dioxide Level 19L, Chloride Level 105, Creatinine 0.97, Eosinophils # (Auto) 0.0, Eosinophils % (Manual) 0, Eosinophils (%) (Auto) 0, Estimat Glomerular Filtration Rate > 60, Glucose Level 279H, Hematocrit 42, Hemoglobin 14.5, Lymphocytes # (Auto) 1.4, Lymphocytes % (Manual) 10, Lymphocytes (%) (Auto) 9L, Mean Corpuscular Hemoglobin 30, Mean Corpuscular Hemoglobin Concent 35, Mean Corpuscular Volume 86, Mean Platelet Volume 10.5H, Monocytes # (Auto) 1.0, Monocytes % (Manual) 2, Monocytes (%) (Auto) 6, Neutrophils # (Auto) 13.9H, Neutrophils % (Manual) 79, Neutrophils (%) (Auto) 85H, Platelet Count 281, Potassium Level 4.5, Reactive Lymphocytes 6, Red Blood Count 4.87, Red Cell Distribution Width 13.9, Sodium Level 136, Total Bilirubin 0.4, Total Protein 5.8L, White Blood Count 16.2H Microbiology 12/27/16 Blood Culture - Preliminary, Resulted No growth 12/27/16 Gram Stain - Final, Resulted 12/27/16 Sputum Culture - Preliminary, Resulted Usual/normal tonya isolated. Pending Labs Laboratory Tests 12/29/16 03:06: Alanine Aminotransferase (ALT/SGPT) 35, Albumin 3.8, Alkaline Phosphatase 47, Anion Gap 12, Aspartate Amino Transf (AST/SGOT) 12, BUN/Creatinine Ratio 23, Band Neutrophils 3, Basophils # (Auto) 0.0, Basophils % (Manual) 0, Basophils (% ) (Auto) 0, Blood Morphology Comment NORMAL, Blood Urea Nitrogen 22, Calcium Level 8.6, Carbon Dioxide Level 19, Chloride Level 105, Creatinine 0.97, Eosinophils # (Auto) 0.0, Eosinophils % (Manual) 0, Eosinophils (%) (Auto) 0, Estimat Glomerular Filtration Rate > 60, Glucose Level 279, Hematocrit 42, Hemoglobin 14.5, Lymphocytes # (Auto) 1.4, Lymphocytes % (Manual) 10, Lymphocytes (%) (Auto) 9, Mean Corpuscular Hemoglobin 30, Mean Corpuscular Hemoglobin Concent 35, Mean Corpuscular Volume 86, Mean Platelet Volume 10.5, Monocytes # (Auto) 1.0, Monocytes % (Manual) 2, Monocytes (%) (Auto) 6, Neutrophils # (Auto) 13.9, Neutrophils % (Manual) 79, Neutrophils (%) (Auto) 85 , Platelet Count 281, Potassium Level 4.5, Reactive Lymphocytes 6, Red Blood Count 4.87, Red Cell Distribution Width 13.9, Sodium Level 136, Total Bilirubin 0.4, Total Protein 5.8, White Blood Count 16.2 Discharge Home Medications: Active Scripts Active Cefdinir 300 Mg Capsule 300 Mg PO BID Prednisone 10 Mg Tab.ds.pk 10 Mg PO DAILY Take 6 tabs(60mg)daily,decrease by 1 tab(10MG)daily. Guaifenesin-Codeine Syrup (Guaifenesin/Codeine) 10 Ml Syrp 10 Ml PO Q4H PRN Iprat-Albut 0.5-3(2.5) mg/3 ml (Ipratropium/Albuterol Sulfate) 3 Ml Ampul.neb 3 Ml INH RTQID Reported Triamterene-Hctz 37.5-25 mg Cp (Triamterene/Hydrochlorothiazid) 1 Each Capsule 1 Cap PO DAILY Metoprolol Succinate 50 Mg Tab.er.24h 50 Mg PO DAILY LAST FILLED #30 11-08-16 Amlodipine Besylate 10 Mg Tablet 10 Mg PO DAILY LAST FILLED #30 11-08-16 Xanax (Alprazolam) 0.25 Mg Tablet 0.25 Mg PO Q8H PRN Protonix (Pantoprazole Sodium) 40 Mg Tablet.dr 40 Mg PO DAILY LAST FILLED #30 11-08-16 Citalopram HBr (Citalopram Hydrobromide) 10 Mg Tablet 10 Mg PO DAILY LAST FILLED #30 11-08-16 Advair 100-50 Diskus (Fluticasone/Salmeterol) 1 Each Blst.w.dev 1 Puff IH BID Proair Respiclick (Albuterol Sulfate) 90 Mcg Aer.pow.ba 1-2 Puff IH Q4H PRN Aspirin Buffered 325 mg Tab (Aspirin/Calcium Carbonate/Mag) 325 Mg Tablet 650 Mg PO DAILY PRN Condition at discharge stable and improved Instructions to patient/family Please see electonic discharge instructions given to patient. Clinical Quality Measures DVT/VTE Risk/Contraindication: Risk Factor Score Per Nursin RFS Level Per Nursing on Admit: 2=Moderate BRAVO MAGANA MD Dec 29, 2016 09:51
[2016-12-29 10:25] VITALS: BP 120/78
== END 2016-12-29 10:25 | disposition home or self-care (01) | DRG 194 ==
LOC: CSD 09:36 → ICU 12-28 18:36
PROVIDERS: ADMIT Internal Medicine; ATTEND Internal Medicine
DX: J18.9 Pneumonia, unspecified organism (principal); R09.02 Hypoxemia; E87.2 Acidosis; I10 Essential (primary) hypertension; E78.5 Hyperlipidemia, unspecified; E11.9 Type 2 diabetes mellitus without complications; E66.9 Obesity, unspecified; Z68.41 Body mass index [BMI] 40.0-44.9, adult; G47.33 Obstructive sleep apnea (adult) (pediatric); J45.909 Unspecified asthma, uncomplicated; K76.0 Fatty (change of) liver, not elsewhere classified
CPT/HCPCS: 36415; 71020; 71275; 80053; 82805; 82962; 83605; 84484; 85007; 85025; 85027; 85379; 87040; 87070; 87205; 87804; 93005; 94640; 94664; 94760

== ENCOUNTER → 2017-04-05 | Outpatient (REF) ==
[~2017-04-05] MED LIST changes: +ALBU90AE IH; +ALPR0.25 PO; +AMLO10TA2 PO; +CEFD300C3 PO; +FLUT1DIS28 IH; +GFCD10B PO; +IPRA3AMP INH; +LEVO750T9 PO; -METO-272 PO; +METO-370 PO; +PANT40TA2 PO; +PRD10T PO; +PRED10TA22 PO; +TRIA1CAP4 PO
--- NOTE | 2017-04-05 11:01 | Diagnostic Imaging Report ---
INDICATION: Left shoulder injury lifting. 3 views of the left shoulder show no fracture or dislocation. There are small osteophytes at the inferior aspect of the glenohumeral joint suggesting some chronic osteoarthritis. IMPRESSION: Mild degenerative changes of the left shoulder. No acute abnormality seen. Dictated by: Dictated on workstation # [id number]
--- NOTE | 2017-04-05 11:02 | Diagnostic Imaging Report ---
INDICATION: Neck injury from lifting. AP and lateral views of the cervical spine show normal vertebral body height and alignment. Disc spaces are well maintained. There is no prevertebral soft tissue swelling. IMPRESSION: Negative cervical spine. Dictated by: Dictated on workstation # [id number]
== END | disposition home or self-care (01) ==
LOC: OCC 10:35
PROVIDERS: ATTEND Nurse Practitioner Family
CPT/HCPCS: 72040; 73030

== ENCOUNTER → 2017-04-10 | Outpatient (REF) | END | disposition home or self-care (01) | LOC: OCC 15:34 | PROVIDERS: ATTEND Nurse Practitioner Family ==